=== PATIENT | female | born 1940 | race American Indian/Alaskan Native ===

== ENCOUNTER 2017-12-16 16:17 | Emergency (ER) | payer MEDICARE ==
[2017-12-16] MEDS ORDERED: TYLENOL PO ONE (16:43)
[2017-12-16] MEDS ORDERED: TYLENOL ONE (16:45)
--- NOTE | 2017-12-16 17:17 | XRay Report ---
FINAL REPORT EXAM: XR CHEST ROUTINE 2V HISTORY: Shortness of breath TECHNIQUE: Chest two views PRIORS: None. FINDINGS: Two lead left-sided pacemaker noted lead wires intact. There is a right shoulder prosthesis. Surgical clips overlie the right ebony thorax. There is a stent in the right infrahilar region please correlate with surgical history. No focal pulmonary infiltrate identified. No pleural fluid collection seen. Pulmonary vasculature is unremarkable. Cardiac silhouette is normal in size IMPRESSION: Pacemaker and postoperative changes no acute abnormality identified in the chest
[2017-12-16 17:23] LABS: Basophils # (Auto) 0.1 K/mm3 (0.0-0.1); Basophils % (Auto) 1.5 % (0.0-1.8); Eosinophils # (Auto) 0.1 K/mm3 (0.0-0.4); Eosinophils % (Auto) 1.1 % (0.0-4.3); Hematocrit 36.9 % (30.3-42.9); Lymphocytes # (Auto) 0.2 K/mm3 (1.2-5.4); Lymphocytes % (Auto) 4.3 % (13.4-35.0); Mean Corpuscular HGB Conc 33 % (30-34); Mean Corpuscular Volume 70 fl (79-97); Monocytes # (Auto) 0.8 K/mm3 (0.0-0.8); Monocytes % (Auto) 14.6 % (0.0-7.3); Platelet Count 211 K/mm3 (140-440); Red Blood Count 5.26 M/mm3 (3.65-5.03); Red Cell Distribution Width 15.3 % (13.2-15.2)
[2017-12-16 17:41] LABS: BUN/Creatinine Ratio 14; Blood Urea Nitrogen 10 mg/dL (7-17); Calcium 9.4 mg/dL (8.4-10.2); Hemolysis Index 3
[2017-12-16 17:46] LABS: Mean Corpuscular Hemoglobin 23 pg (28-32)
[2017-12-17 09:15] VITALS: BP 149/61
== END 2017-12-17 10:40 | disposition left against medical advice (07) ==
LOC: ED 16:17
DX: Z53.21 Procedure and treatment not carried out due to patient leaving prior to being seen by health care provider (principal)
CPT/HCPCS: 36415; 71046; 80048; 85025; 87400; 93005; 93010

== ENCOUNTER 2018-04-17 13:05 | Emergency (ER) | payer MEDICARE ==
[2018-04-17 14:13] LABS: Bacteria,Urine 1+ /HPF (Negative); Bilirubin,Urine NEG (Negative); Blood,Urine NEG (Negative); Color,Urine Yellow (Yellow); Mucus,Urine FEW /HPF; Protein,Urine <15 mg/dL mg/dL (Negative); Urobilinogen,Urine < 2.0 mg/dL (<2.0)
[2018-04-17 14:29] LABS: Hematocrit 38.3 % (30.3-42.9); Hemoglobin 12.3 gm/dl (10.1-14.3); Mean Corpuscular HGB Conc 32 % (30-34); Mean Corpuscular Hemoglobin 23 pg (28-32); Mean Corpuscular Volume 70 fl (79-97); Platelet Count 264 K/mm3 (140-440); Red Blood Count 5.47 M/mm3 (3.65-5.03); Red Cell Distribution Width 16.7 % (13.2-15.2)
[2018-04-17 14:44] LABS: Calcium 9.1 mg/dL (8.4-10.2)
[2018-04-17 15:20] LABS: Basophils % (Manual) 0 % (0.0-1.8); Eosinophils % (Manual) 0 % (0.0-4.3); RBC Morphology Normal; Total Cells Counted 100
[2018-04-17] MEDS ORDERED: TYLENOL ONE (16:56)
[2018-04-17] MEDS ORDERED: TYLENOL PO ONE (16:57)
--- NOTE | 2018-04-17 20:17 | Emergency Department Report ---
HPI - General Chief Complaint: Abdominal Pain Time Seen by Provider: 04/17/18 20:10 - HPI HPI: 78-year-old female presents to the emergency department with a complaint of a 2 day history of lower abdominal and pelvic discomfort, worse on the left side. Currently it is 10 out of 10 in intensity. There are no aggravating or alleviating factors. She tried some Tylenol earlier without much relief. She has some nausea without vomiting but denies any fever, vaginal bleeding or discharge, back pain. She has a past medical history of hypertension and remote breast cancer with right-sided mastectomy. She has never had any intra- abdominal or pelvic surgery or pathology. Recent travel or sick contacts at home. ED Past Medical Hx - Past Medical History Hx Hypertension: Yes Hx Congestive Heart Failure: No Hx Diabetes: No Hx Asthma: No Hx COPD: No Additional medical history: bradycardia - Surgical History Hx Pacemaker: Yes Additional Surgical History: right breast mastectomy, pace maker - Social History Smoking Status: Never Smoker Substance Use Type: None - Medications Home Medications: Home Medications Medication Instructions Recorded Confirmed Last Taken Type Hydrochlorothiazide [HCTZ] 25 mg PO QDAY #30 tablet 11/22/16 Unknown Rx Lisinopril [Zestril TAB] 20 mg PO QDAY #30 tablet 11/22/16 Unknown Rx amLODIPine [Norvasc] 10 mg PO QDAY #30 tablet 11/22/16 Unknown Rx ED Review of Systems ROS: Stated complaint: ABDOMINAL PAIN Other details as noted in HPI Comment: All other systems reviewed and negative Constitutional: denies: chills, fever Eyes: denies: eye pain, eye discharge, vision change ENT: denies: ear pain, throat pain Respiratory: denies: cough, shortness of breath, wheezing Cardiovascular: denies: chest pain, palpitations Gastrointestinal: abdominal pain. denies: vomiting Genitourinary: denies: dysuria, discharge Musculoskeletal: denies: back pain, joint swelling, arthralgia Skin: denies: rash, lesions Neurological: denies: headache, weakness, paresthesias Physical Exam - Physical Exam Vital Signs: Vital Signs 04/17/18 13:26 Temperature 98.6 F Pulse Rate 60 Respiratory 17 Rate Blood Pressure 106/58 O2 Sat by Pulse 97 Oximetry Physical Exam: GENERAL: The patient is well-developed well-nourished. HENT: Normocephalic. Atraumatic. Patient has moist mucous membranes. EYES: Extraocular motions are intact. Pupils equal reactive to light bilaterally. NECK: Supple. Trachea is midline. CHEST/LUNGS: Clear to auscultation. There is no respiratory distress noted. HEART/CARDIOVASCULAR: Regular. There is no tachycardia. There is no murmur. ABDOMEN: Abdomen is soft. There is some mild left lower quadrant abdominal and/ or pelvic tenderness to palpation. No guarding. Patient has normal bowel sounds. There is no abdominal distention. SKIN: Skin is warm and dry. NEURO: The patient is awake, alert, and oriented. The patient is cooperative. The patient has no focal neurologic deficits. The patient has normal speech. MUSCULOSKELETAL: There is no tenderness or deformity. There is no limitation range of motion. There is no evidence of acute injury. ED Course Vital Signs 04/17/18 13:26 Temperature 98.6 F Pulse Rate 60 Respiratory 17 Rate Blood Pressure 106/58 O2 Sat by Pulse 97 Oximetry - Pulse Oximetry Interpretation Digit-Finger Initial Pulse Oximetry Readin O2 Sat by Pulse Oximetry: 97 Actions Taken: none Additional Comments: normal ED Medical Decision Making - Lab Data Result diagrams: 04/17/18 14:10 04/17/18 Unknown - Radiology Data Radiology results: report reviewed Transvaginal ultrasound shows a 3.4 x 2.4 x 3.1 cm echogenic shadowing mass which appears to project in the region of the uterine fundus. However the uterus is retroverted in the planes are difficult to see. The endometrial stripe is obscured. Neither ovary identified. CT scan of the abdomen and pelvis with IV contrast shows bilateral adrenal glands that are thickened and most likely representing adrenal hyperplasia. 3 cm calcified fibroid in the uterus. Mild degree of residual stool. - Medical Decision Making This patient presents with a few days of some lower abdominal and/or pelvic discomfort. Her labs are unremarkable. At first she had an ultrasound that showed concern for a uterine mass. However this was differentiated into a uterine fibroid with the CT scan of the abdomen and pelvis with IV contrast. She also has some adrenal hyperplasia. Both of these results, as well as the results of the labs were discussed with the patient in detail. She has good follow-up with primary care and she was given multiple referrals for [facility]PL[facility] services. She will return to the ER with any worsening of her symptoms or any acute distress. All questions were answered and the patient understands and agrees to the plan. - Differential Diagnosis fibroids, malignancy, diverticulitis, colitis Critical Care Time: No Critical care attestation.: If time is entered above; I have spent that time in minutes in the direct care of this critically ill patient, excluding procedure time. ED Disposition Clinical Impression: Pelvic pain Fibroid, uterine Qualifiers: Uterine leiomyoma location: unspecified location Qualified Code(s): D25.9 - Leiomyoma of uterus, unspecified Disposition: TO HOME OR SELFCARE Is pt being admited?: No Condition: Stable Instructions: Uterine Fibroids (ED) Additional Instructions: Please follow-up with your primary care physician. I have also given you multiple COUPLER referrals to follow up regarding your uterine fibroid. Return to the emergency Department with any worsening of your symptoms or any acute distress. Referrals: [facility] [Provider Group] - 3-5 Days [facility], [facility] [Provider Group] - 3-5 Days [facility] [Provider Group] - 3-5 Days Time of Disposition: 22:25
[2018-04-17 20:24] VITALS: BP 142/65
--- NOTE | 2018-04-18 00:16 | Ultrasound Report ---
FINAL REPORT EXAM: US TRANSVAGINAL HISTORY: pelvic pain TECHNIQUE: Transvaginal pelvic sonographic imaging was performed Comparison: None FINDINGS: Retroverted uterus measures 4.6 x 3.2 x 4.3 centimeters. Endometrial stripe is not identified. There is an echogenic shadowing mass in the uterine fundus measuring 3.4 x 2.4 x 3.1 centimeters which may represent a calcified fibroid. Neither ovary is identified. IMPRESSION: 3.4 x 2.4 x 3.1 centimeter echogenic shadowing mass which appears to project in the region of the uterine fundus. However, the uterus is retroverted and the planes are difficult to see. The endometrial stripe is obscured. Neither ovary is identified. If clinically indicated, further assessment with CT with IV contrast may be valuable to assess the etiology of this shadowing lesion.
--- NOTE | 2018-04-18 00:16 | Cat Scan Report ---
FINAL REPORT PROCEDURE: CT ABDOMEN PELVIS W CON TECHNIQUE: Computerized axial tomography of the abdomen and pelvis was performed after the IV injection of iodinated nonionic contrast. HISTORY: Lower abd pain COMPARISON: No prior studies are available for comparison. FINDINGS: There is mild degree diffuse prominence of interstitial markings liver, spleen, pancreas are unremarkable. There is mild degree thickening of bilateral adrenal glands most likely representing adrenal hyperplasia. A small simple cyst measuring 6 millimeters is noted in the midpole right kidney. Otherwise bilateral kidneys demonstrate normal enhancement without hydronephrosis. Urinary bladder is partially filled with normal outlines. Aorta is of normal caliber. There is no free fluid or free air. Gallbladder is unremarkable. Small bowel loops are within normal limits. There is mild degree residual stool. Multiple colonic diverticula are noted without evidence of diverticulitis. Appendix is normal. An irregularly calcified mass lesion measuring 3 centimeters is noted in the uterus consistent with a calcified fibroid. Moderate degree degenerative changes are noted involving the lumbar spine.. IMPRESSION: Bilateral adrenal glands are thickened most likely representing adrenal hyperplasia. 3 centimeter calcified fibroid in the uterus Mild degree residual stool
== END 2018-04-17 23:32 | disposition home or self-care (01) ==
LOC: ED 13:05
DX: D25.9 Leiomyoma of uterus, unspecified (principal); R10.2 Pelvic and perineal pain; I10 Essential (primary) hypertension
CPT/HCPCS: 36415; 74177; 76830; 80053; 81001; 85007; 85025; 99284; Q9967

== ENCOUNTER → 2018-07-07 | Day surgery (SDC) | payer MEDICARE ==
[~2018-07-07] MED LIST: DIPRIVAN 10 MG/ML IV ONE; NACL 0.9% 1000 ML 1,000 ML IV SCH; WATER FOR IRRIG STERILE IR ONE; WATER FOR IRRIG STERILE ONE; XYLOCAINE 1% 20 mL ONE
--- NOTE | 2018-07-07 08:52 | Anesthesia Day of Surgery ---
Anesthesia Day of Surgery - Day of Surgery Patient Examined: Yes Patient H&P Reviewed: Yes Patient is NPO: Yes
--- NOTE | 2018-07-07 08:52 | Anesthesia Consultation ---
Anesthesia Consult and Med Hx Date of service: 07/07/18 - Airway Anesthetic Teeth Evaluation: Partials ROM Head & Neck: Adequate Mental/Hyoid Distance: Adequate Mallampati Class: Class I Intubation Access Assessment: Good - Pulmonary Exam CTA: Yes - Cardiac Exam Cardiac Exam: RRR - Pre-Operative Health Status ASA Pre-Surgery Classification: ASA3 Proposed Anesthetic Plan: MAC - Pulmonary Hx Smoking: Yes (Ex, quit 40 years ago ) - Cardiovascular System Hx Hypertension: Yes Hx Pacemaker: Yes - Gastrointestinal Hx Ulcer: Yes - Other Systems Hx Cancer: Yes (s/p mastectomy )
--- NOTE | 2018-07-07 09:17 | Short Stay Summary ---
Short Stay Documentation Date of service: 07/07/18 Narrative H&P: The patient presents for diagnostic colonoscopy for LLQ pain. She also has a history of colon polyps - History Past Medical History: arthritis, cancer, hypertension, other (diverticulosis) Past Surgical History: Other (breast surgery) Social history: no significant social history, lives with family, no smoking, no alcohol abuse - Allergies and Medications Current Medications: Allergies aspirin Allergy (Verified 04/17/18 13:25) Bleeding naproxen [From Naprosyn] Allergy (Verified 11/19/16 21:46) Bleeding Home Medications Medication Instructions Recorded Confirmed Last Taken Type Hydrochlorothiazide [HCTZ] 25 mg PO QDAY #30 tablet 11/22/16 Unknown Rx Lisinopril [Zestril TAB] 20 mg PO QDAY #30 tablet 11/22/16 Unknown Rx amLODIPine [Norvasc] 10 mg PO QDAY #30 tablet 11/22/16 Unknown Rx Active Medications Sodium Chloride (Nacl 0.9% 1000 Ml) 1,000 mls @ 50 mls/hr IV DIRECT JASS - Physical exam General appearance: no acute distress, well-nourished Integumentary: no rash, no growths HEENT: Atraumatic, PERRLA, Mucous membr. moist/pink Lungs: Clear to auscultation, Normal air movement Breasts: deferred Heart: Regular rate, Normal S1, Normal S2, No murmurs Gastrointestinal: normoactive bowel sounds, no tenderness, no distended, no masses, no organomegaly, no hepatomegaly, no splenomegaly Female Genitourinary: deferred Rectal Exam: normal exam-external/orifice, no mass Extremities: no ischemia, pulses intact, pulses symmetrical, No edema, normal temperature, Full ROM Neurological: Normal gait, Normal speech, Strength at 5/5 X4 ext, Normal tone, Sensation intact, Cranial nerves 3-12 NL - Brief post op/procedure progress note Date of procedure: 07/07/18 Findings: see dictated report Estimated blood loss: none Pathology: list (sigmoid colon polyp) Specimen disposition: to lab Condition: stable - Disposition Condition at discharge: Good Disposition: DC-01 TO HOME OR SELFCARE - Discharge Diagnoses (1) LLQ abdominal pain Status: Acute Short Stay Discharge Plan Activity: other (no driving for 24 hours) Weight Bearing Status: Full Weight Bearing Diet: regular Follow up with: PRIMARY CARE, [Primary Care Provider] - 7 Days
--- NOTE | 2018-07-07 09:21 | Operative Report ---
Operative Report Operative Report: Date of procedure: 07/07/2018 Preprocedure diagnosis: Left lower quadrant pain. Rule out diverticular disease , neoplasia. Post procedure diagnosis: Moderate left colon diverticulosis, 6 mm pedunculated sigmoid polyp. Procedure: Colonoscopy to the cecum with cold snare polypectomy Endoscopist: Dr. Monahan Anesthesia: Monitored anesthesia care per anesthesia department Estimated blood loss: 0 Medications: Monitored anesthesia care. See separate report by anesthesia for details. After careful discussion of the nature and purpose of the procedure as well as details of the technique risks benefits and alternatives the patient gave consent. Please see recent history and physical from the office. The patient was placed in the left lateral decubitus position and medicated per anesthesia. A rectal exam was performed sphincter tone was normal there were no masses palpable. The [employer] 570 scope was passed transanally and advanced under continuous direct vision without difficulty to the cecum. The colon was well prepared. The cecum was normal. The ascending colon was normal and on forward and retroflexed views. The transverse colon was normal. The descending colon and sigmoid colon revealed moderate diverticulosis. There was a 6 mm pedunculated polyp in the mid sigmoid colon. The polyp was removed with cold snare resection by snare and retrieved by suction. The rectum was normal on forward and retroflexed views. The procedure was well-tolerated overall and the patient was observed in recovery. Conclusions: Moderate left colon diverticulosis. 6 mm pedunculated sigmoid polyp. Plan: Await pathology. Repeat colonoscopy in 5 years. Signed electronically: Lamonte Monahan M.D.
[2018-07-07 09:43] VITALS: BP 143/59
--- NOTE | 2018-07-07 11:42 | Post Anesthesia Evaluation ---
- Post Anesthesia Evaluation Patient Participated: Yes Airway Patent: Yes Stable Respiratory Function: Yes Nausea/Vomiting: No Temp > 96.8F: Yes Pain Manageable: Yes Adequeate Hydration: Yes Anesthesia Complications: No
== END | disposition home or self-care (01) ==
LOC: GIO 07:33
PROVIDERS: ATTEND Internal Medicine Gastroenterology
DX: K63.5 Polyp of colon (principal); K57.30 Diverticulosis of large intestine without perforation or abscess without bleeding; M19.90 Unspecified osteoarthritis, unspecified site; I10 Essential (primary) hypertension; Z79.899 Other long term (current) drug therapy; Z88.6 Allergy status to analgesic agent; Z90.11 Acquired absence of right breast and nipple; Z95.0 Presence of cardiac pacemaker; Z87.891 Personal history of nicotine dependence; Z85.3 Personal history of malignant neoplasm of breast; Z86.010 Personal history of colon polyps; Z98.890 Other specified postprocedural states
CPT/HCPCS: 45385; 88305; J2704; J7030

== ENCOUNTER 2021-05-28 10:04 | Emergency (ER) | payer MEDICARE ==
[2021-05-28 10:41] VITALS: BP 161/64
--- NOTE | 2021-05-28 12:03 | Emergency Department Report ---
HPI - General Chief Complaint: Skin Rash Time Seen by Provider: 05/28/21 11:36 - HPI HPI: This is an 81-year-old -N[place]alese female presents to the emergency department with the complaint of a rash to the right upper extremity, mostly to the volar portion of the forearm and into the inside of the right elbow. Patient says that she also has 1 or 2 lesions behind her right knee. This rash is comprised of itchy, raised red bumps and the patient says some of them have started to become "scaly." Overall this has been going on for the past 3 to 4 days but she says that there have been new lesions. Initially they were just itchy, but they have started to become slightly painful. Patient says that she put some "bleach" on them which did increase the stinging sensation and/or irritation. Patient says that she has a past medical history of hypertension and she has a pacemaker in place. No recent travel or sick contacts at home. She has a primary care physician, but has not seen them regarding her symptoms. ED Past Medical Hx - Past Medical History Previous Medical History?: Yes Hx Hypertension: Yes Hx Congestive Heart Failure: No Hx Diabetes: No Hx Arthritis: Yes Hx Asthma: No Hx COPD: No Hx HIV: No Additional medical history: bradycardia - Surgical History Past Surgical History?: Yes Hx Pacemaker: Yes Hx Breast Surgery: Yes Additional Surgical History: right breast mastectomy, pace maker - Social History Smoking Status: Former Smoker - Medications Home Medications: Home Medications Medication Instructions Recorded Confirmed Last Taken Type amLODIPine 10 mg PO QDAY #30 tablet 11/22/16 08/05/18 08/05/18 05:00 Rx hydroCHLOROthiazide [HCTZ] 25 mg PO QDAY #30 tablet 11/22/16 08/05/18 08/04/18 Rx lisinopriL [Zestril TAB] 20 mg PO QDAY #30 tablet 11/22/16 08/05/18 08/04/18 Rx Docusate Sodium [Colace] 100 mg PO BID PRN #60 capsule 08/07/18 Unknown Rx Ferrous Sulfate [Feosol 325 MG tab] 325 mg PO BID #60 tablet 08/07/18 Unknown Rx Oxycodone HCl/Acetaminophen 1 each PO Q6HR PRN #45 tablet 08/07/18 Unknown Rx [Percocet 7.5/325 mg] Valacyclovir HCl [Valtrex] 1,000 mg PO Q8H #21 tablet 05/28/21 Unknown Rx predniSONE [Deltasone] 20 mg PO QDAY #3 tab 05/28/21 Unknown Rx ED Review of Systems ROS: Stated complaint: RASH Other details as noted in HPI Comment: All other systems reviewed and negative Constitutional: denies: chills, fever Eyes: denies: eye pain, vision change ENT: denies: ear pain, throat pain Respiratory: denies: cough, shortness of breath Cardiovascular: denies: chest pain, palpitations Gastrointestinal: denies: abdominal pain, vomiting Genitourinary: denies: dysuria, discharge Musculoskeletal: denies: back pain, arthralgia Skin: rash, lesions, pruritus Neurological: denies: headache, numbness Physical Exam - Physical Exam Vital Signs: Vital Signs 05/28/21 10:41 Temperature 97.8 F Pulse Rate 64 Respiratory 16 Rate Blood Pressure 161/64 O2 Sat by Pulse 99 Oximetry Physical Exam: GENERAL: The patient is well-developed well-nourished. HENT: Normocephalic. Atraumatic. Patient has moist mucous membranes. EYES: Extraocular motions are intact. NECK: Supple. Trachea is midline. CHEST/LUNGS: Clear to auscultation. There is no respiratory distress noted. HEART/CARDIOVASCULAR: Regular. There is no tachycardia. There is no murmur. ABDOMEN: Abdomen is soft, nontender. Patient has normal bowel sounds. SKIN: Skin is warm and dry. Patient has multiple red raised papular lesions to the right upper extremity seen on the ulnar side of the forearm, the inferior ar m, and some to the ulnar side of the dorsal right forearm. Some of these papular lesions have been excoriated down and a few appear to have some scaling or crusting. NEURO: The patient is awake, alert, and oriented. The patient is cooperative. The patient has no focal neurologic deficits. Normal speech. MUSCULOSKELETAL: There is no tenderness or deformity. There is no limitation range of motion. ED Course Vital Signs 05/28/21 10:41 Temperature 97.8 F Pulse Rate 64 Respiratory 16 Rate Blood Pressure 161/64 O2 Sat by Pulse 99 Oximetry ED Medical Decision Making - Medical Decision Making This patient presents to the emergency department with a complaint of a 3 to 4-day history of a rash to the right upper extremity, and also one lesion behind her right knee. Ignoring the lesion behind the right knee, there is concerned that this could be early herpes zoster. Most of the rash appears along the C8 dermatome of the right arm, and just the right arm. They are red, raised, papular but a few of them appear excoriated down and some appear to be scaly and/or crusting. This rash will be treated as if it is herpes zoster with Valtrex and the patient was given a few days of prednisone. She has been given 2 different referrals for local dermatologists. She will return to the emergency department with any worsening of her symptoms or with any acute distress. Critical Care Time: No Critical care attestation.: If time is entered above; I have spent that time in minutes in the direct care of this critically ill patient, excluding procedure time. ED Disposition Clinical Impression: Shingles Qualifiers: Herpes zoster complications: without complications Qualified Code(s): B02.9 - Zoster without complications Hypertension Qualifiers: Hypertension type: primary hypertension Qualified Code(s): I10 - Essential (primary) hypertension Disposition: TO HOME OR SELFCARE Is pt being admited?: No Condition: Stable Instructions: Shingles, Hypertension, Adult, Hypertension (ED) Additional Instructions: Please follow-up with your primary care physician in the next few days. I have given you a referral for 2 different local dermatology groups. Please follow-up with a underwear welter in the next few days. If this is in fact shingles, you are contagious to those who have not had shingles or chickenpox, or are not vaccinated against these diseases. The lesions are contagious until they have crusted over. Take all medications as prescribed. Return to the emergency department with any worsening of your symptoms, new or concerning symptoms not addressed during this current emergency department visit, or with any acute distress. Prescriptions: predniSONE [Deltasone] 20 mg PO QDAY #3 tab Valacyclovir HCl [Valtrex] 1,000 mg PO Q8H #21 tablet Referrals: [facility] [Other] - 2-3 Days YESSENIA SANTOS MD [Staff Physician] - 2-3 Days Time of Disposition: 12:05
== END 2021-05-28 12:20 | disposition home or self-care (01) ==
LOC: ED 10:04
DX: B02.9 Zoster without complications (principal); I10 Essential (primary) hypertension; M19.90 Unspecified osteoarthritis, unspecified site; Z87.891 Personal history of nicotine dependence
CPT/HCPCS: 99281

== ENCOUNTER 2022-04-08 08:49 | Emergency (ER) | payer MEDICARE ==
[2022-04-08 09:10] VITALS: BP 139/58
--- NOTE | 2022-04-08 12:44 | Emergency Department Report ---
ED General Adult HPI - General Chief complaint: Skin/Abscess/Foreign Body Stated complaint: RASH ON HANDS/ARMS Time Seen by Provider: 04/08/22 12:01 Source: patient Mode of arrival: Ambulatory Limitations: No Limitations - History of Present Illness Initial comments: Patient is 82 years old female with history of hypertension and arthritis. Patient presented to the ER complaining of 2-week history of bilateral upper extremity rash. Patient stated that she was doing some yard work when she started having this rash. Patient stated that rash is itchy especially at night. Patient stated that she thinks she got some poison lakshmi. She denied any fever or chills. No chest pain or shortness of breath. -: week(s) Location: upper extremity Consistency: constant Associated Symptoms: denies other symptoms - Related Data Previous Rx's Medication Instructions Recorded Last Taken Type amLODIPine 10 mg PO QDAY #30 tablet 11/22/16 08/05/18 05:00 Rx hydroCHLOROthiazide [HCTZ] 25 mg PO QDAY #30 tablet 11/22/16 08/04/18 Rx lisinopriL [Zestril TAB] 20 mg PO QDAY #30 tablet 11/22/16 08/04/18 Rx Docusate Sodium [Colace] 100 mg PO BID PRN #60 capsule 08/07/18 Unknown Rx Ferrous Sulfate [Feosol 325 MG tab] 325 mg PO BID #60 tablet 08/07/18 Unknown Rx Oxycodone HCl/Acetaminophen 1 each PO Q6HR PRN #45 tablet 08/07/18 Unknown Rx [Percocet 7.5/325 mg] Valacyclovir HCl [Valtrex] 1,000 mg PO Q8H #21 tablet 05/28/21 Unknown Rx predniSONE [Deltasone] 20 mg PO QDAY #3 tab 05/28/21 Unknown Rx Allergies Allergy/AdvReac Type Severity Reaction Status Date / Time aspirin Allergy Bleeding Verified 07/31/18 12:09 naproxen [From Naprosyn] Allergy Bleeding Verified 07/31/18 12:09 ED Review of Systems ROS: Stated complaint: RASH ON HANDS/ARMS Other details as noted in HPI Comment: All other systems reviewed and negative Constitutional: denies: chills, fever Respiratory: denies: cough, shortness of breath, SOB with exertion, SOB at rest Cardiovascular: denies: chest pain, palpitations Gastrointestinal: denies: abdominal pain, nausea, vomiting, diarrhea Musculoskeletal: denies: back pain Skin: rash, pruritus. denies: lesions, change in color, change in hair/nails Neurological: denies: headache, weakness, numbness, paresthesias, confusion ED Past Medical Hx - Past Medical History Previous Medical History?: Yes Hx Hypertension: Yes Hx Congestive Heart Failure: No Hx Diabetes: No Hx Arthritis: Yes Hx Asthma: No Hx COPD: No Hx HIV: No Additional medical history: bradycardia - Surgical History Past Surgical History?: Yes Hx Pacemaker: Yes Hx Breast Surgery: Yes Additional Surgical History: right breast mastectomy, pace maker - Social History Smoking Status: Former Smoker - Medications Home Medications: Home Medications Medication Instructions Recorded Confirmed Last Taken Type amLODIPine 10 mg PO QDAY #30 tablet 11/22/16 08/05/18 08/05/18 05:00 Rx hydroCHLOROthiazide [HCTZ] 25 mg PO QDAY #30 tablet 11/22/16 08/05/18 08/04/18 Rx lisinopriL [Zestril TAB] 20 mg PO QDAY #30 tablet 11/22/16 08/05/18 08/04/18 Rx Docusate Sodium [Colace] 100 mg PO BID PRN #60 capsule 08/07/18 Unknown Rx Ferrous Sulfate [Feosol 325 MG tab] 325 mg PO BID #60 tablet 08/07/18 Unknown Rx Oxycodone HCl/Acetaminophen 1 each PO Q6HR PRN #45 tablet 08/07/18 Unknown Rx [Percocet 7.5/325 mg] Valacyclovir HCl [Valtrex] 1,000 mg PO Q8H #21 tablet 05/28/21 Unknown Rx predniSONE [Deltasone] 20 mg PO QDAY #3 tab 05/28/21 Unknown Rx ED Physical Exam - General Limitations: No Limitations General appearance: alert, in no apparent distress - Head Head exam: Present: atraumatic, normocephalic, normal inspection - Eye Eye exam: Present: normal appearance - Neck Neck exam: Present: normal inspection - Respiratory Respiratory exam: Present: normal lung sounds bilaterally - Cardiovascular Cardiovascular Exam: Present: regular rate, normal rhythm, normal heart sounds - GI/Abdominal GI/Abdominal exam: Present: soft, normal bowel sounds. Absent: distended, tenderness, guarding, rebound, rigid, organomegaly, mass, bruit, pulsatile mass, hernia - Extremities Exam Extremities exam: Present: full ROM - Back Exam Back exam: Present: normal inspection. Absent: CVA tenderness (R), CVA tenderness (L) - Neurological Exam Neurological exam: Present: alert, oriented X3, CN II-XII intact, normal gait. Absent: motor sensory deficit - Psychiatric Psychiatric exam: Present: normal mood - Skin Skin exam: Present: warm, intact, urticaria, other (Maculopapular rash to upper extremities bilaterally with linear distribution.) ED Course Vital Signs 04/08/22 09:07 Temperature 98 F Pulse Rate 60 Respiratory 16 Rate Blood Pressure 139/58 [Left] O2 Sat by Pulse 99 Oximetry ED Medical Decision Making - Medical Decision Making Patient is 82 years old female with history of hypertension and arthritis. Patient presented to the ER complaining of 2-week history of bilateral upper extremity rash. Patient stated that she was doing some yard work when she started having this rash. Patient stated that rash is itchy especially at night. Patient stated that she thinks she got some poison lakshmi. She denied any fever or chills. No chest pain or shortness of breath. Patient remained stable in the ER with a stable vital signs. Patient rash is consistent with poison lakshmi. I will start patient on prednisone and advised patient to follow-up with her primary doctor for further management. Patient also advised to return to the ER if she develop any new symptoms. Critical care attestation.: If time is entered above; I have spent that time in minutes in the direct care of this critically ill patient, excluding procedure time. ED Disposition Clinical Impression: Contact dermatitis, Poison lakshmi Disposition: 01 HOME / SELF CARE / HOMELESS Is pt being admited?: No Condition: Stable Instructions: Poison Lakshmi Dermatitis Referrals: PRIMARY CARE, [Primary Care Provider] - 3-5 Days
== END 2022-04-08 13:46 | disposition home or self-care (01) ==
LOC: ED 08:49
DX: L23.7 Allergic contact dermatitis due to plants, except food (principal); I10 Essential (primary) hypertension; M19.90 Unspecified osteoarthritis, unspecified site; Z98.890 Other specified postprocedural states; Z87.891 Personal history of nicotine dependence; Z88.6 Allergy status to analgesic agent
CPT/HCPCS: 99282